=== PATIENT | female | born 1950 | race Caucasian/White ===

== ENCOUNTER 2023-09-20 19:36 | Emergency (ER) | payer OTHER, MEDICARE, SELFPAY ==
[2023-09-20 19:39] VITALS: BP 152/71; PULSE 92; RESP 18; TEMP 36.7; O2SAT 98; BMI 33.3
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
[2023-09-20 20:00] LABS: Mucous, Urine 0 SEEN /hpf (<or=2+)
[2023-09-20 20:10] LABS: Color, Urine Yellow (Yellow); Glucose, Dipstick Normal (Normal); Ketone-Dipstick Negative (Negative); Leukocyte Esterase-Dipstick 100 /ul (Negative); Nitrite-Dipstick Negative (Negative); Occult Blood-Urine 10 /ul (Negative); Protein-Dipstick 30 mg/dl (Negative); Urine Bilirubin Dipstick Negative (Negative); Urine Clarity Clear (Clear); Urine Urobilinogen Normal (Normal)
[2023-09-20 20:21] LABS: Bacteria RARE /hpf (None Seen); Red Blood Cells-Urine 0-5 SEEN /hpf (0-5); Squamous Epithelial Cells - UA 0-5 SEEN /hpf (5-10); White Blood Cells 5-10 SEEN /hpf (0-5)
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
== END 2023-09-20 21:33 | disposition home or self-care (01) ==
PROVIDERS: Emergency Provider Emergency Medicine; PCP Student in an Organized Health Care Education/Training Program; Visit Provider Emergency Medicine
DX: S20.229A Contusion of unspecified back wall of thorax, initial encounter (principal); M94.9 Disorder of cartilage, unspecified; Y92.481 Parking lot as the place of occurrence of the external cause; V43.52XA Car driver injured in collision with other type car in traffic accident, initial encounter
CPT/HCPCS: 71101; 71120; 81001; 99282